=== PATIENT | male | born 1955 | race Hispanic/Latino ===

== ENCOUNTER 2017-06-09 19:44 | Emergency (ER) | payer SELFPAY ==
[2017-06-09 19:54] VITALS: BP 149/90
== END 2017-06-10 07:37 | disposition left against medical advice (07) ==
LOC: ED 19:44
DX: Z53.21 Procedure and treatment not carried out due to patient leaving prior to being seen by health care provider (principal)

== ENCOUNTER 2019-11-28 15:34 | Emergency (ER) | payer MEDICARE ==
--- NOTE | 2019-11-28 18:18 | Event Note ---
ED Screening Note ED Screening Note: headache and pain behind the right eye that began 2-3 days ago states occasionally right eye feels blurry no numbness, weakness, speech or gait disturbance This initial assessment/diagnostic orders/clinical plan/treatment(s) is/are subject to change based on patients health status, clinical progression and re- assessment by fellow clinical providers in the ED. Further treatment and workup at subsequent clinical providers discretion. Patient/guardian urged not to elope from the ED as their condition may be serious if not clinically assessed and managed. Initial orders include: CT head
[2019-11-28] MEDS ORDERED: methylPREDNISolone Sod Succinate 125 MG/2 ML INJ IM ONE (20:06)
[2019-11-28] MEDS ORDERED: KETOROLAC 30 MG/1 ML INJ IM ONE (20:06)
--- NOTE | 2019-11-28 20:06 | Cat Scan Report ---
NONENHANCED CT SCAN OF THE HEAD: INDICATION / CLINICAL INFORMATION: 64 years Male; headache, right eye blurriness. TECHNIQUE: Routine CT head without contrast. All CT scans at this location are performed using CT dos e reduction for ALARA by means of automated exposure control. COMPARISON: None. FINDINGS: BRAIN / INTRACRANIAL CONTENTS: No acute hemorrhage, mass effect, midline shift, hydrocephalus, or ac randall, large territorial infarct. Subtle chronic ischemic changes are seen in the corpus stratum bilate rally. Normal brain volume and ventricular/sulcal size for age. No significant white matter abnormali ty. CRANIOCERVICAL JUNCTION: Most inferior image is at the level of foramen magnum. Cerebellar tonsils ar e seen at this level. Cervicomedullary junction is not compromised. ORBITS: No significant abnormality of visualized orbits. SINUSES / MASTOIDS: No significant abnormality of the visualized paranasal sinuses or mastoid air obdulia ls. ADDITIONAL FINDINGS: None. IMPRESSION: No acute parenchymal lesion in the brain Signer Name: Jessica Mcpherson MD Signed: 11/28/2019 8:02 PM Workstation Name: [id number]
--- NOTE | 2019-11-28 21:22 | Emergency Department Report ---
ED General Adult HPI - General Chief complaint: Headache Stated complaint: HEADACHE/NERVES Time Seen by Provider: 11/28/19 18:16 Source: patient Mode of arrival: Ambulatory Limitations: No Limitations - History of Present Illness Initial comments: Patient is a 64-year-old white male with a history of hypertension, chronic osteoarthritis and chronic gouty arthropathy who presents to the ED with complaint of acute onset persistent severe intermittent right temporal scalp pain that is described as sharp and stabbing intermittently for the last 2 weeks, worse in the last 2 days. Patient states that the pain is worse with palpation of the right temporal area and at times he is unable to comb his hair because of the sensitivity of the right temporal area. Patient also complains of mild blurry vision in the right eye whenever the shooting pain. Patient denies dizziness, syncope, vision loss, speech changes, fever, chills, cough, nasal and sinus congestion, loss of consciousness, seizures, traumatic injury or fall, chest pain or shortness of breath or neck pain. MD Complaint: right temporal scalp pain -: Sudden, week(s) (2) Location: head Radiation: non-radiation Severity scale (0 -10): 6 Quality: stabbing, aching, sharp Consistency: intermittent Improves with: none Worsens with: other (palpation) Associated Symptoms: denies other symptoms. denies: confusion, chest pain, cough, diaphoresis, fever/chills, headaches, loss of appetite, malaise, nausea/vomiting, rash, seizure, shortness of breath, weakness, other Treatments Prior to Arrival: none - Related Data Previous Rx's Medication Instructions Recorded Last Taken Type AtorvaSTATin [Lipitor] 40 mg PO QHS #30 tab 10/05/19 Unknown Rx Pantoprazole [Protonix] 40 mg PO BID #60 tablet 10/05/19 Unknown Rx Ibuprofen [Motrin] 600 mg PO Q8H PRN #24 tablet 11/28/19 Unknown Rx predniSONE [Deltasone] 40 mg PO QDAY #10 tab 11/28/19 Unknown Rx Allergies Allergy/AdvReac Type Severity Reaction Status Date / Time No Known Allergies Allergy Verified 11/28/19 16:20 ED Review of Systems ROS: Stated complaint: HEADACHE/NERVES Other details as noted in HPI Constitutional: denies: chills, fever Eyes: vision change (Blurry vision on right eye). denies: eye pain, eye discharge ENT: other (Right temporal scalp pain). denies: ear pain, throat pain Respiratory: denies: cough, shortness of breath, wheezing Cardiovascular: denies: chest pain, palpitations Endocrine: no symptoms reported Gastrointestinal: denies: abdominal pain, nausea, diarrhea Genitourinary: denies: urgency, dysuria Musculoskeletal: denies: back pain, joint swelling, arthralgia Skin: denies: rash, lesions Neurological: denies: headache, weakness, paresthesias Psychiatric: denies: anxiety, depression Hematological/Lymphatic: denies: easy bleeding, easy bruising ED Past Medical Hx - Past Medical History Hx Hypertension: Yes Hx Arthritis: Yes Additional medical history: gout - Surgical History Additional Surgical History: abdominal - Social History Smoking Status: Never Smoker Substance Use Type: None - Medications Home Medications: Home Medications Medication Instructions Recorded Confirmed Last Taken Type AtorvaSTATin [Lipitor] 40 mg PO QHS #30 tab 10/05/19 Unknown Rx Pantoprazole [Protonix] 40 mg PO BID #60 tablet 10/05/19 Unknown Rx Ibuprofen [Motrin] 600 mg PO Q8H PRN #24 tablet 11/28/19 Unknown Rx predniSONE [Deltasone] 40 mg PO QDAY #10 tab 11/28/19 Unknown Rx ED Physical Exam - General Limitations: No Limitations General appearance: alert, in no apparent distress - Head Head exam: Present: other (Palpable severe right temporal scalp tenderness) - Eye Eye exam: Present: normal appearance, PERRL, EOMI Pupils: Present: normal accommodation - ENT ENT exam: Present: normal exam, normal orophraynx, mucous membranes moist, TM's normal bilaterally, normal external ear exam - Neck Neck exam: Present: normal inspection, full ROM - Respiratory Respiratory exam: Present: normal lung sounds bilaterally. Absent: respiratory distress, wheezes, rales, rhonchi, chest wall tenderness, accessory muscle use, decreased breath sounds, prolonged expiratory - Cardiovascular Cardiovascular Exam: Present: regular rate, normal rhythm, normal heart sounds. Absent: systolic murmur, diastolic murmur, rubs, gallop - GI/Abdominal GI/Abdominal exam: Present: soft, normal bowel sounds. Absent: tenderness, g uarding, rebound, hyperactive bowel sounds, hypoactive bowel sounds - Extremities Exam Extremities exam: Present: normal inspection, full ROM, normal capillary refill - Back Exam Back exam: Present: normal inspection, full ROM. Absent: tenderness, CVA tenderness (R), CVA tenderness (L), muscle spasm, paraspinal tenderness, vertebral tenderness - Neurological Exam Neurological exam: Present: alert, oriented X3, CN II-XII intact, normal gait, reflexes normal - Psychiatric Psychiatric exam: Present: normal affect, normal mood - Skin Skin exam: Present: warm, dry, intact, normal color. Absent: rash ED Course Vital Signs 11/28/19 11/28/19 16:24 20:38 Temperature 98.3 F Pulse Rate 78 Respiratory 20 18 Rate Blood Pressure 106/72 [Left] O2 Sat by Pulse 99 Oximetry ED Medical Decision Making - Radiology Data Radiology results: report reviewed, image reviewed Findings [facility] [address] [place] [address] Cat Scan Report Signed Patient: IRMA PELAYO MR#: [id number] : 1955 Acct:[id number] Age/Sex: 64 / M ADM Date: 11/28/19 Loc: ED Attending Dr: Ordering Physician: BRAN BEASLEY Date of Service: 11/28/19 Procedure(s): CT head/brain wo con Accession Number(s): [id number] cc: BRAN BEASLEY NONENHANCED CT SCAN OF THE HEAD: INDICATION / CLINICAL INFORMATION: 64 years Male; headache, right eye blurriness. TECHNIQUE: Routine CT head without contrast. All CT scans at this location are performed using CT dose reduction for ALARA by means of automated exposure control. COMPARISON: None. FINDINGS: BRAIN / INTRACRANIAL CONTENTS: No acute hemorrhage, mass effect, midline shift, hydrocephalus, or acute, large territorial infarct. Subtle chronic ischemic changes are seen in the corpus stratum bilaterally. Normal brain volume and ventricular/sulcal size for age. No significant white matter abnormality. CRANIOCERVICAL JUNCTION: Most inferior image is at the level of foramen magnum. Cerebellar tonsils are seen at this level. Cervicomedullary junction is not compromised. ORBITS: No significant abnormality of visualized orbits. SINUSES / MASTOIDS: No significant abnormality of the visualized paranasal sinuses or mastoid air cells. ADDITIONAL FINDINGS: None. IMPRESSION: No acute parenchymal lesion in the brain Signer Name: Jessica Mcpherson MD Signed: 11/28/2019 8:02 PM Workstation Name: [id number] Transcribed By: BS Dictated By: Jessica Beltran MD Electronically Authenticated By: Jessica Beltran MD Signed Date/Time: 11/28/192001 DD/ 58 TD/TT: - Medical Decision Making This is a 64-year-old white male with a history of hypertension, chronic osteoarthritis and chronic gouty arthropathy who presents to the ED with complaint of acute onset persistent severe intermittent right temporal scalp pain that is described as sharp and stabbing intermittently for the last 2 weeks, worse in the last 2 days. Patient states that the pain is worse with palpation of the right temporal area and at times he is unable to comb his hair because of the sensitivity of the right temporal area. Patient also complains of mild blurry vision in the right eye whenever the shooting pain. In the ED, patient is alert and oriented x3 and is not in distress. Patient was treated for pain in the ED and the head CT scan without contrast shows no acute intracranial abnormalities or hemorrhage. On reevaluation, the patient's pain is well controlled with medications. Patient's lab test results are nonactionable. Other differential diagnoses were considered in the treatment including GCA, trigeminal neuralgia, migraine headache, muscle strain and folliculitis. Patient was discharged home on medications and advised to follow- up with his primary care physician in 7 to 10 days for reevaluation. Patient was advised to return to the ED immediately if symptoms get worse. - Differential Diagnosis GCA; Vascullitis; Migraine; folliculitis; muscle strain Critical care attestation.: If time is entered above; I have spent that time in minutes in the direct care of this critically ill patient, excluding procedure time. ED Disposition Clinical Impression: Neuralgia involving scalp, Trigeminal neuralgia syndrome, Muscle strain Disposition: DC-01 TO HOME OR SELFCARE Is pt being admited?: No Does the pt Need Aspirin: No Condition: Stable Instructions: Trigeminal Neuralgia (ED), Muscle Strain (ED) Additional Instructions: The head CT is unremarkable with no acute abnormalities. Therefore take medica tions as needed with food, drink plenty of fluids and follow-up with your primary care physician in 7 to 10 days for reevaluation. Return to the ED immediately if symptoms get worse. Prescriptions: predniSONE [Deltasone] 40 mg PO QDAY #10 tab Ibuprofen [Motrin] 600 mg PO Q8H PRN #24 tablet PRN Reason: Pain Referrals: MIKI URIARTE DO [Primary Care Provider] - 3-5 Days Time of Disposition: 21:58 Print Language: NEPALI
[2019-11-28 22:47] VITALS: BP 115/77
== END 2019-11-28 22:45 | disposition home or self-care (01) ==
LOC: ED 15:34
DX: T14.8XXA Other injury of unspecified body region, initial encounter (principal); M79.2 Neuralgia and neuritis, unspecified; I10 Essential (primary) hypertension; M19.91 Primary osteoarthritis, unspecified site; Z79.1 Long term (current) use of non-steroidal anti-inflammatories (NSAID); Z79.899 Other long term (current) drug therapy; X58.XXXA Exposure to other specified factors, initial encounter; Y93.89 Activity, other specified; Y92.89 Other specified places as the place of occurrence of the external cause; Y99.8 Other external cause status
CPT/HCPCS: 36415; 70450; 85652; 96372; 99284; J1885; J2930

== ENCOUNTER 2019-12-03 10:56 | Emergency (ER) | payer MEDICARE | END 2019-12-03 11:30 | disposition left against medical advice (07) | LOC: ED 10:56 | DX: R51 Headache (principal); Z53.21 Procedure and treatment not carried out due to patient leaving prior to being seen by health care provider ==